=== PATIENT | female | born 1980 | race Caucasian/White ===

== ENCOUNTER → 2016-06-03 | Day surgery (SDC) | payer OTHER ==
[~2016-06-03] MED LIST: ACETAMINOPHEN 1000 MG/100 ML VIAL IV ONE; BACITRACIN IM FOR SOLN 50,000 UNIT VIAL ONE; BUPIVACAINE/EPINEPHRINE 0.25% 50 ML VIAL ONE; GENTAMICIN SULFATE 80 MG/2 ML VIAL ONE; LACTATED RINGER'S 1000 ML INJ 1,000 ML ONE; LIDOCAINE 1%/EPINEPHrine 1:100,000 SOLN 50 ML VIAL ONE; MIDAZOLAM HCL 2 MG/2 ML VIAL ONE; ONDANSETRON HCL 4 MG/2 ML VIAL IV PUSH ONE; PROPOFOL 200 MG/20 ML AMP IV ONE; SODIUM CHLORIDE 0.9% 20 ML VIAL ONE; ceFAZolin INJ 1,000 MG VIAL ONE
--- NOTE | 2016-06-03 13:04 | TN ---
cc: DARREN DAVIDSON M.D. DATE OF SURGERY 06/03/2016 PREOPERATIVE DIAGNOSIS Wishes breast enhancement. POSTOPERATIVE DIAGNOSIS Wishes breast enhancement. PROCEDURE Bilateral augmentation mammoplasty. SURGEON Darren Davidson MD ANESTHESIA LMA general plus a total of 60 cc of a breast block and a combination of 1% lidocaine with epinephrine mixed with 0.25% Marcaine in 2:1 ratio, 30 cc per breast. IMPLANT DATA PLACEMENT AND TECHNIQUE Breanne Gold SRM volume 330 cc, serial number of the right breast implant device [id number] and the serial number of the left implant is [id number], both were placed in the retropectoral plane through an inframammary incision. PROCEDURE She was properly consented, marked and properly anesthetized. The skin was sterilized with Betadine solution, breast block was applied, sterile draping applied. Through a 4-1/2 to 5 inframammary incision, the Kiesha's fascia and Don's ligament was properly spared. With this, I proceeded and found the inferolateral fibers of the pectoralis major muscle. This was properly undermined and released all the way down to the medial insertion. Once the pocket was properly created and meticulous hemostasis was assured, I proceeded to perform the proper introduction of the implant utilizing a no-touch technique by isolating the skin at the nipple-areolar complex from the beginning. The contralateral side was approached in exactly the same manner. The patient was sat up assuring best symmetry possible utilizing some blunt touch-ups. The wounds were closed in three layers of 2-0 Monocryl suture on the breast parenchyma, Kiesha's fascia, dermis and subcu. After Mastisol, Steri-Strips were applied. The patient tolerated the procedure well, was awakened and extubated in the operating room, transferred back to the postanesthesia care unit in stable condition. There were no complications appreciated. The patient tolerated the procedure fairly well. MD SHIRA Cancino/NASREEN /12:47 PM /12:56 PM
== END | disposition home or self-care (01) ==
LOC: ESDC 09:44
PROVIDERS: ATTEND Plastic Surgery
DX: Z41.1 Encounter for cosmetic surgery (principal)
CPT/HCPCS: 00402; 19325; C1789; J0131; J0690; J1580; J2250; J2405; J3010; J7120

== ENCOUNTER → 2017-05-12 | Day surgery (SDC) | payer OTHER ==
--- NOTE | 2017-05-11 15:52 | TH ---
cc: Darren Davidson MD DATE: 05/12/2017 PROCEDURE TO BE PERFORMED: Revision augmentation. HISTORY OF PRESENT ILLNESS: This pleasant 35-year-old female who underwent a bilateral augmentation mammoplasty back on 06/02/2016. Patient developed some laxity and asymmetry of the breast, for which she needed some revision. PAST MEDICAL HISTORY: Otherwise remarkable for a tubal ligation, otherwise unremarkable. PHYSICAL EXAMINATION: CONSTITUTIONAL: General appearance. The patient is a well-developed female, in no acute distress. Body habitus is within normal limits. There appear to be no deformities. Appears to have attention to grooming. HEENT: Eyes Conjunctivae and lids are within normal anatomical limits. The pupils are reactive to light and accommodation, size, and symmetry. There is no evidence of exudate, hemorrhage, or vessel change. Ears, mouth, nose, and throat The external inspection of the ears and nose fails to demonstrate any pathology, scars, lesions, or masses. Nasal mucosa, septum, and turbinates appear to be well hydrated as well as the lips and gums. No evidence of masses in the hypopharynx or submental area. RESPIRATORY: The patient shows no evidence of intercostal refractions. Otherwise, lungs are clear to auscultation without any abnormal sounds or rubs. CARDIOVASCULAR: The patient has a normal heart rate and rhythm. There is no evidence of noticed carotid bruits. Femoral pulses and pedal pulses in extremities are also within normal limits. GASTROINTESTINAL AND ABDOMEN: Soft with no evidence of masses or tenderness. Unable to palpate the liver or spleen. No evidence of hernia. MUSCULOSKELETAL: Appears to be reasonable range of motion on the head, neck, spine, ribs, pelvis, right upper extremity, left upper extremity, right lower extremity, and left lower extremity. The muscle strength and tone appears to be equal and within accepted limits SKIN: There is no rashes, lesions, or ulcers on the trunk, back, and extremities. NEUROLOGICAL: Examination is grossly normal. PSYCHIATRIC: The patient appears to have good orientation of time, place, and person. Does not appear to have any mood effects of depression, anxiety, or agitation. BREASTS: In good symmetry, though lateralization is noted easily on both sides, left worse than right. PLAN: Revision augmentation. MD SHIRA Cancino/YOKO , 03:20 PM , 03:50 PM
[~2017-05-12] MED LIST changes: +ACETAMINOPHEN 1000 MG/100 ML 100 ML IV ONE; -ACETAMINOPHEN 1000 MG/100 ML VIAL IV ONE; +APREPITANT 40 MG CAP ONE; +KETOROLAC TROMETHAMINE 30 MG/ML (IVP) VIAL IV PUSH ONE; +LIDOCAINE 1%/EPINEPHrine 1:100,000 SOLN 30 ML VIAL ONE; -LIDOCAINE 1%/EPINEPHrine 1:100,000 SOLN 50 ML VIAL ONE
--- NOTE | 2017-05-12 13:42 | TN ---
cc: Darren Davidson MD DATE OF SURGERY: 05/12/2017 PREOPERATIVE DIAGNOSIS: Status post augmentation mammoplasty with further lateralization and asymmetry. PROCEDURE: Bilateral breast implant augmentation revision. SURGEON: Darren Davidson MD, [facility] ANESTHESIA: LMA, general. I also did a block of 60 mL of 1% lidocaine with epinephrine mixed with 0.25% Marcaine at a 2:1 ratio. COMPLICATIONS: None. PROCEDURE IN DETAIL: She was properly consented, marked, properly anesthetized. The skin was sterilized with Betadine solution and sterile draping was applied. Local block was applied. Through the previous 4-4.5 cm inframammary incision, a trap door was created. The pocket with the capsule was opened, the implant was removed very carefully and put on a side table with triple antibiotic solution. Inspection of the pocket did reveal lateralization beyond the anterior axillary line and beyond the inframammary fold. This was properly repaired with multiple locking 2-0 silks in a running locking fashion. After that, a Strattice [address] the lower poles medial and lateral, anchored with a 2-0 nylon and anchored to the base with 2-0 Monocryl suture. This was placed again with the anchors before the implant was reintroduced. After doing that, isolating the skin, the implant was reintroduced without any further problems. The anchors of the Strattice was properly secures to fit and this was also applied with a Xeroform pledget. The contralateral side was approached in exactly in the same manner as previously described. Good symmetry was achieved. The wounds were closed utilizing 2-0 Monocryl suture on the capsule, dermis and subcu and Mastisol and Steri-Strips applied. Overall, the patient tolerated the procedure well. She was awakened, extubated in the operating room and transferred back to the postanesthesia care unit in stable condition. No complications appreciated. The patient tolerated the procedure very fairly well. MD SHIRA Cancino/YOKO , 01:05 PM , 01:32 PM
== END | disposition home or self-care (01) ==
LOC: ESDC 09:20
PROVIDERS: ATTEND Plastic Surgery
DX: Z41.1 Encounter for cosmetic surgery (principal)
CPT/HCPCS: 00402; 19325; C1781; J0131; J0690; J1580; J1885; J2250; J2405; J3010; J7120; J8501